=== PATIENT | female | born 1990 | race Caucasian/White ===

== ENCOUNTER 2017-02-14 07:59 | Emergency (ER) | payer OTHER ==
[~2017-02-14] VITALS: Ht 170.2 cm; Wt 98.8 kg
[~2017-02-14 07:59] MED LIST: AMOXICILLIN500 M1 PO; ASPIR 8181 M1 PO; AUGMENTIN500 MG PO; AUGMENTIN875 MG PO; ESCITALOPRAM OX10 MG PO; NAPROSYN500 MG PO; ONE DAILY TABL1 EAC1 PO; Omega III EPA + DHA PO; REGLAN10 MG PO; THERAGRAN1 TABLET PO; Vicodin,Lortab 5/500 PO; ZOLOFT50 MG PO
[2017-02-14 08:44] LABS: EOSINOPHIL (%) 3.3 % (0-5); EOSINOPHIL COUNT 0.4 K/uL (0-0.3); HEMATOCRIT 40.4 % (36.0-46.0); IMMATURE GRANULOCYTE (%) 0.7 % (0.0-0.7); IMMATURE GRANULOCYTE COUNT 0.1 K/uL; INSTRUMENT ABS NEUTROPHIL CT 7.5 K/uL; LYMPHOCYTE COUNT 3.6 K/uL (1.0-2.8); MCHC 33.9 G/DL (30.0-36.0); MCV 91.4 FL (83-99); MEAN PLAT.VOLUME 9.8 uM^3 (9.5-12.4); MONOCYTE (%) 5.6 % (3-12); MONOCYTE COUNT 0.7 K/uL (0-0.8); NEUTROPHIL (%) 60.7 % (45-76); NEUTROPHIL COUNT 7.5 K/uL (1.8-6.4); PLATELET COUNT 244 K/uL (156-360); RBC DIS.WIDTH-CV 12.4 % (11.8-14.6); RBC DIS.WIDTH-SD 41.5 % (39-53); RED BLOOD COUNT 4.42 M/uL (3.80-5.20); WHITE BLOOD COUNT 12.4 K/uL (4.1-10.2)
[2017-02-14 08:54] LABS: CHLORIDE 103 mEq/L (99-109); POTASSIUM 3.8 mEq/L (3.7-5.4); SODIUM 139 mEq/L (136-147)
[2017-02-14 08:56] LABS: GLUCOSE 89 mg/dL (70-99)
[2017-02-14 08:57] LABS: ANION GAP 13 MEQ/L (2-14)
[2017-02-14 09:00] LABS: GFR ESTIMATE (CALCULATED) > 59 mL/min/; UREA NITROGEN (BUN) 17 mg/dL (9-23)
[2017-02-14 09:08] LABS: QUANTITATIVE HCG < 4.0 MIU/ML
[2017-02-14 11:53] LABS: ADD MIUA? YES; BILIRUBIN NEGATIVE; BLOOD SMALL; COLOR YELLOW ((YELLOW)); GLUCOSE (STRIP) NEGATIVE; KETONES NEGATIVE; LEUKOCYTES TRACE; NITRITE NEGATIVE; PROTEIN (STRIP) NEGATIVE; SPECIFIC GRAVITY 1.034 (1.000-1.030); UROBILINOGEN 0.2 MG/DL (0.2-1.0)
[2017-02-14 12:01] LABS: BACTERIA NONE SEEN /HPF; EPITHELIAL CELLS 1+ /HPF; MUCUS TRACE /LPF; RED BLOOD CELLS 0-5 /HPF (0-5); WHITE BLOOD CELLS 0-5 /HPF (0-5)
[2017-02-14] MEDS ORDERED: AUGMENTIN875 MG PO (12:48)
[2017-02-14] MEDS ORDERED: TYLENOL WITH C1 EACH PO (12:52)
[2017-02-14 13:31] VITALS: BP 117/73
== END 2017-02-14 13:36 | disposition home or self-care (01) ==
LOC: EME → EDBD 07:59 → EME 07:59
PROVIDERS: Emergency Medicine
PROC: 0HQEXZZ Repair Left Lower Arm Skin, External Approach (ICD-10-PCS; principal; 2017-02-14)
DX: S09.90XA Unspecified injury of head, initial encounter (principal); S20.229A Contusion of unspecified back wall of thorax, initial encounter; S00.01XA Abrasion of scalp, initial encounter; S51.012A Laceration without foreign body of left elbow, initial encounter; M25.511 Pain in right shoulder; V47.5XXA Car driver injured in collision with fixed or stationary object in traffic accident, initial encounter; S50.862A Insect bite (nonvenomous) of left forearm, initial encounter; L03.114 Cellulitis of left upper limb; W57.XXXA Bitten or stung by nonvenomous insect and other nonvenomous arthropods, initial encounter; F17.200 Nicotine dependence, unspecified, uncomplicated
CPT/HCPCS: 70450; 71260; 72125; 72129; 72132; 74177; 76770; 80048; 81003; 84702; 85025; 99281; 99285; J2270; J7030

== ENCOUNTER 2017-04-28 04:33 | Emergency (ER) | payer OTHER ==
[~2017-04-28 04:33] MED LIST changes: +TYLENOL WITH C1 EACH PO
[2017-04-28 04:52] LABS: EOSINOPHIL (%) 2.1 % (0-5); EOSINOPHIL COUNT 0.2 K/uL (0-0.3); HEMATOCRIT 39.4 % (36.0-46.0); IMMATURE GRANULOCYTE (%) 0.3 % (0.0-0.7); INSTRUMENT ABS NEUTROPHIL CT 5.7 K/uL; LYMPHOCYTE COUNT 3.1 K/uL (1.0-2.8); MCHC 33.5 G/DL (30.0-36.0); MCV 92.5 FL (83-99); MEAN PLAT.VOLUME 9.4 uM^3 (9.5-12.4); MONOCYTE (%) 5.2 % (3-12); MONOCYTE COUNT 0.5 K/uL (0-0.8); NEUTROPHIL COUNT 5.7 K/uL (1.8-6.4); PLATELET COUNT 245 K/uL (156-360); RBC DIS.WIDTH-CV 12.5 % (11.8-14.6); RBC DIS.WIDTH-SD 42.2 % (39-53); RED BLOOD COUNT 4.26 M/uL (3.80-5.20); WHITE BLOOD COUNT 9.5 K/uL (4.1-10.2)
[2017-04-28 05:01] LABS: AMYLASE 49 IU/L (1-118); CHLORIDE 104 mEq/L (99-109); POTASSIUM 3.3 mEq/L (3.7-5.4); SODIUM 140 mEq/L (136-147)
[2017-04-28 05:03] LABS: GLUCOSE 97 mg/dL (70-99)
[2017-04-28 05:04] LABS: ANION GAP 12 MEQ/L (2-14)
[2017-04-28 05:06] LABS: GFR ESTIMATE (CALCULATED) > 59 mL/min/; SERUM ETHYL ALCOHOL < 10 mg/dL
[2017-04-28 05:07] LABS: UREA NITROGEN (BUN) 18 mg/dL (9-23)
[2017-04-28 05:09] LABS: LIPASE 19 U/L (1.0-51.0)
[2017-04-28 05:15] LABS: QUANTITATIVE HCG < 4.0 MIU/ML
== END 2017-04-28 07:12 | disposition home or self-care (01) ==
LOC: EME 04:33
PROVIDERS: Emergency Medicine
PROC: 0HQEXZZ Repair Left Lower Arm Skin, External Approach (ICD-10-PCS; principal; 2017-04-28)
DX: S61.512A Laceration without foreign body of left wrist, initial encounter (principal); X99.1XXA Assault by knife, initial encounter; Y92.511 Restaurant or cafe as the place of occurrence of the external cause; Y99.0 Civilian activity done for income or pay
CPT/HCPCS: 80048; 81003; 82150; 83690; 84702; 85025; 86850; 86900; 86901; 99281; 99284; G0480